=== PATIENT | male | born 1955 | race Caucasian/White ===

== ENCOUNTER 2021-12-05 20:11 | Emergency (ER) | payer MEDICARE ==
[~2021-12-05] VITALS: Ht 208.3 cm; Wt 115.7 kg
--- NOTE | 2021-12-05 20:12 | NUR ---
[id number]. URINARY RETENTION SINCE 1529. HAD KIDNEY STONE REMOVAL SX LAST WEDNESDAY. PLACED ON BED, AAOX4, IN PAIN 10/ PS
[2021-12-05] MEDS ORDERED: HYDROMORPHONE INJ 2 MG/ML DISP.SYRIN IV ONE (20:30)
[2021-12-05] MEDS ORDERED: IV NS 0.9% 1,000 ML BAG IV ONE (20:30)
[2021-12-05] MEDS ORDERED: ONDANSETRON HCL/PF 4 MG/2 ML VIAL IVP ONE (20:30)
--- NOTE | 2021-12-05 20:30 | NUR ---
BLOOD DRAWN AND SENT TO LAB
[2021-12-05] MEDS ORDERED: HYDROMORPHONE 1 MG/1 ML DISP.SYRIN ONE (20:31)
[2021-12-05] MEDS ORDERED: ONDANSETRON HCL/PF 4 MG/2 ML VIAL ONE (20:31)
--- NOTE | 2021-12-05 20:40 | NUR ---
PATIENT TAKEN TO CT VIA [facility]
[2021-12-05 20:48] LABS: BASOPHILS % (AUTO) 0.2 % (0.0-2.0); EOSINOPHILS % (AUTO) 0.1 % (0.0-6.0); HEMATOCRIT 38 % (39-51); HEMOGLOBIN 12.8 g/dL (13.5-17.5); LYMPHOCYTES # (AUTO) 1.9 K/uL (0.8-4.8); LYMPHOCYTES % (AUTO) 13.5 % (20.0-44.0); MEAN CORPUSCULAR HGB CONC 34 g/dl (31.0-36.0); MEAN CORPUSCULAR VOLUME 95 fL (80-96); MONOCYTES # (AUTO) 1.6 K/uL (0.1-1.30); MONOCYTES % (AUTO) 11.3 % (2.0-12.0); NEUTROPHILS # (AUTO) 10.3 K/uL (1.8-8.9); NEUTROPHILS % (AUTO) 74.9 % (43.0-81.0); PLATELET COUNT (AUTO) 226 K/uL (150-450); WHITE BLOOD COUNT (AUTO) 13.7 K/uL (4.3-11.0)
--- NOTE | 2021-12-05 21:00 | NUR ---
INSERTED FOLLEY CATH. FR16 DRAINING TO A BRIGHT BLOOD STAINED URINE OUTPUT.
--- NOTE | 2021-12-05 21:04 | NUR ---
URINE SAMPLE SENT TO LAB
--- NOTE | 2021-12-05 21:45 | NUR ---
FOLLEY CATH DRAINING TO A PINK COLOR URINE OUTPUT.
[2021-12-05 21:47] LABS: COLOR,URINE RED (YELLOW)
[2021-12-05] MEDS ORDERED: HYDR-4209 PO (21:48)
[2021-12-05] MEDS ORDERED: CIPR-262 PO (21:48)
--- NOTE | 2021-12-05 22:05 | NUR ---
URINE SAMPLE SENT TO LAB
[2021-12-05 22:08] LABS: BACTERIA,URINE RARE /HPF (None Seen); RBC,URINE TOO NUMEROUS TO COUN /HPF (0-2); SQUAMOUS EPITHELIAL CELL,UR 0-2 /HPF (None Seen)
[2021-12-05 22:39] LABS: ALBUMIN 4.1 g/dL (3.4-5.0); BILIRUBIN,DIRECT 0.2 mg/dL (0.0-0.2); BILIRUBIN,TOTAL 0.9 mg/dL (0.2-1.0); CREATININE 1.4 mg/dL (0.6-1.3); POTASSIUM 3.1 mmol/L (3.5-5.1); TOTAL PROTEIN, SERUM 7.5 g/dL (6.4-8.2)
[2021-12-05 22:48] LABS: CALCIUM, SERUM 8.7 mg/dL (8.5-10.1)
[2021-12-05] MEDS ORDERED: POTASSIUM CHLORIDE 20 MEQ TAB.PRT.SR PO ONE ×2 (22:52→23:00)
[2021-12-05 22:59] LABS: BILIRUBIN,URINE NEGATIVE (NEGATIVE); COLOR,URINE DARK YELLOW (YELLOW); LEUKOCYTE ESTERASE ,URINE TRACE (NEGATIVE); NITRITE, URINE NEGATIVE (NEGATIVE); PH,URINE 7.5 (5.0-8.0); PROTEIN,URINE 30 mg/dl (NEGATIVE); UGLUCOSE NEGATIVE (NEGATIVE); UROBILINOGEN,URINE 0.2 EU/dL (0.2)
[2021-12-05 23:19] LABS: BACTERIA,URINE Rare /HPF (None Seen); SQUAMOUS EPITHELIAL CELL,UR Few /HPF (None Seen)
--- NOTE | 2021-12-05 23:19 | NUR ---
IV removed. Catheter intact and site benign. Pressure and 4x4 applied to site. No bleeding noted.Patient discharged to home in stable condition. Written and verbal after care instructions given. Patient verbalizes understanding of instruction.
[2021-12-05 23:21] VITALS: BP 118/60
== END 2021-12-05 23:21 | disposition home or self-care (01) ==
LOC: ER 20:16
DX: R33.9 Retention of urine, unspecified (principal); Z87.442 Personal history of urinary calculi
CPT/HCPCS: 99284; 74176; 96374; 96361; 96375; 51701; 85025; 80048; 83690; 80076; 81001 ×2; 36415; J2405; J1170

== ENCOUNTER 2021-12-09 18:03 | Emergency (ER) | payer MEDICARE ==
[~2021-12-09] VITALS: Ht 182.9 cm; Wt 113.4 kg
[~2021-12-09 18:03] MED LIST: CIPR-262 PO; HYDR-4209 PO
[2021-12-09 18:20] VITALS: BP 158/99
--- NOTE | 2021-12-09 18:20 | NUR ---
[id number] FROM HOME C/O URINARY RETENTION S/P F/C DISCONTINUED AT 1030.
[2021-12-09] MEDS ORDERED: LIDOCAINE 2% JEL UROJET 10 ML MM ONE ×2 (18:35→19:00)
[2021-12-09] MEDS ORDERED: BISA10SU61 RC (19:52)
[2021-12-09] MEDS ORDERED: POLY17PO4 PO (19:52)
--- NOTE | 2021-12-09 20:30 | NUR ---
Patient discharged to home in stable condition. Written and verbal after care instructions given. Patient verbalizes understanding of instruction.
== END 2021-12-09 20:38 | disposition home or self-care (01) ==
LOC: ER 18:05
DX: R33.9 Retention of urine, unspecified (principal); K59.00 Constipation, unspecified; Z88.6 Allergy status to analgesic agent; Z98.890 Other specified postprocedural states; Z79.899 Other long term (current) drug therapy
CPT/HCPCS: 99284; 51702; J3490

== ENCOUNTER 2021-12-23 18:57 | Emergency (ER) | payer MEDICARE ==
[~2021-12-23] VITALS: Ht 182.9 cm; Wt 113.4 kg
[~2021-12-23 18:57] MED LIST changes: +BISA10SU61 RC; +POLY17PO4 PO
--- NOTE | 2021-12-23 19:37 | NUR ---
FULLER CATH FR 16 INSERTED ASEPTICALLY; PROCEDURE [place] WELL BY PT. ABLE TO DRAIN URINE OF YELLOW COLOR. URINE SAMPLE COLLECTED AND SENT TO LAB.
[2021-12-23 19:51] LABS: BILIRUBIN,URINE NEGATIVE (NEGATIVE); COLOR,URINE YELLOW (YELLOW); LEUKOCYTE ESTERASE ,URINE MODERATE (NEGATIVE); NITRITE, URINE NEGATIVE (NEGATIVE); PROTEIN,URINE NEGATIVE (NEGATIVE); UGLUCOSE NEGATIVE (NEGATIVE)
[2021-12-23 20:10] LABS: BACTERIA,URINE M /HPF (None Seen); SQUAMOUS EPITHELIAL CELL,UR None Seen /HPF (None Seen); WBC,URINE 81-100 /HPF (0-3)
[2021-12-23] MEDS ORDERED: NITR100C6 PO (20:58)
--- NOTE | 2021-12-23 21:00 | NUR ---
Patient discharged to home in stable condition. Written and verbal after care instructions given. Patient verbalizes understanding of instruction.
[2021-12-24 00:22] VITALS: BP 147/75
== END 2021-12-23 21:05 | disposition home or self-care (01) ==
LOC: ER 19:05
DX: N39.0 Urinary tract infection, site not specified (principal); R33.9 Retention of urine, unspecified; Z87.442 Personal history of urinary calculi; Z88.0 Allergy status to penicillin; Z88.6 Allergy status to analgesic agent
CPT/HCPCS: 81001; 87086-TC; 87186-TC

== ENCOUNTER → 2022-01-06 | Emergency (ER) | payer MEDICARE ==
[~2022-01-06] VITALS: Ht 185.4 cm; Wt 108.9 kg
[~2022-01-06] MED LIST changes: +NITR100C6 PO
[2022-01-06 05:33] VITALS: BP 153/72
--- NOTE | 2022-01-06 05:41 | NUR ---
PATIENT WAS STEVAN IN BY RA FROM HOME FOR C/O URINARY RETENTION SINCE YESTERDAY MORNING. PT HAD A PROCEDURE DONE AT [facility] LAST MONTH AND HAD HAD A F/C IN PLACE UNTIL YESTERDAY WHEN IT WAS REMOVED AT HIS UROLOGIST OFFICE. PT A, OX4. WAS ASSISTED TO BED 7 ER. VSS. WILL CONT TO MONITOR.
--- NOTE | 2022-01-06 05:49 | NUR ---
F/C INSERTED. PT TOLERATED THE PROCEDURE WELL. DRAINING 700 ML OF CLEAR, ORANGE YELLOW. SAMPLE COLLECTED.
--- NOTE | 2022-01-06 06:33 | NUR ---
leg bag placed. f/c intacted.
== END | disposition home or self-care (01) ==
LOC: ER 05:31
DX: R33.9 Retention of urine, unspecified (principal); Z87.442 Personal history of urinary calculi; Z88.8 Allergy status to other drugs, medicaments and biological substances; Z79.899 Other long term (current) drug therapy